=== PATIENT | female | born 1960 | race American Indian/Alaskan Native ===

== ENCOUNTER 2020-05-02 08:55 | Outpatient (CLI) | payer MEDICARE ==
--- NOTE | 2020-05-03 07:40 | Mammography Report ---
DIGITAL SCREENING MAMMOGRAM WITH CAD, 05/02/2020 CLINICAL INFORMATION / INDICATION: Routine screening mammography. TECHNIQUE: Digital bilateral 2D mammography was obtained in the craniocaudal and mediolateral obliqu e projections. This examination was interpreted with the benefit of Computer-Aided Detection analysis . COMPARISON: 03/27/2010 FINDINGS: Breast Density: The breasts are heterogeneously dense, which may obscure small masses. No dominant mass, suspicious calcifications, or architectural distortion in either breast. Interval right Port-A-Cath placement is seen. Small nodes in the right axilla are not enlarged or sig nificantly thickened. IMPRESSION: No mammographic evidence of malignancy. Follow up recommendation: Routine yearly BI-RADS Category 2: Benign. A "normal" or negative report should not discourage follow up or biopsy of a clinically significant f inding. A written summary of these findings will be mailed to the patient. The patient will be entered into a mammography reporting system which will generate a reminder letter for the patient's next appointmen t at the appropriate interval. The [employer] recommends yearly mammograms starting at age 40 and continuing as l castro as a woman is in good health. Breast MRI is recommended for women with an approximate 20-25% or greater lifetime risk of breast cancer, including women with a strong family history of breast or ova sapna cancer or who have been treated for Hodgkin's disease. Signer Name: Tomás Augustine MD Signed: 05/03/2020 7:35 AM Workstation Name: [id number]
== END 2020-05-02 08:56 | disposition home or self-care (01) ==
LOC: SPVWC 08:55
PROVIDERS: ATTEND Internal Medicine Hematology & Oncology
DX: Z12.31 Encounter for screening mammogram for malignant neoplasm of breast (principal)
CPT/HCPCS: 77067

== ENCOUNTER 2022-01-03 15:12 | Emergency (ER) | payer MEDICARE ==
[2022-01-03] MEDS ORDERED: SODIUM CHLORIDE 0.9% 1000 ML 1,000 ML IV ONE (15:18)
[2022-01-03] MEDS ORDERED: charcoal activated SOLUTION 25 GM/120 ML PO ONE (15:19)
--- NOTE | 2022-01-03 15:46 | XRay Report ---
CHEST 1 VIEW 01/03/2022 3:27 PM INDICATION / CLINICAL INFORMATION: Altered Mental Status. COMPARISON: 05/14/2015 FINDINGS: SUPPORT DEVICES: None. HEART / MEDIASTINUM: No significant abnormality. LUNGS / PLEURA: No significant pulmonary or pleural abnormality. No pneumothorax. ADDITIONAL FINDINGS: No significant additional findings. IMPRESSION: 1. No acute findings. Signer Name: Iván Nuno Jr, MD Signed: 01/03/2022 3:41 PM Workstation Name: [id number]
[2022-01-03 17:06] LABS: Amphetamine Screen,Urine Negative; Benzodiazepines Screen,Urine Negative; Cannabinoid Screen,Urine Negative; Cocaine Screen,Urine Negative; Methadone Screen,Urine Negative; Opiate Screen,Urine Negative
[2022-01-03 17:15] LABS: Bacteria,Urine 1+ /HPF (Negative); Mucus,Urine FEW /HPF
[2022-01-03 17:26] LABS: Color,Urine Yellow (Yellow)
[2022-01-03 19:38] LABS: Basophils # (Auto) 0.1 K/mm3 (0.0-0.1); Basophils % (Auto) 1.4 % (0.0-1.8); Eosinophils # (Auto) 0.2 K/mm3 (0.0-0.4); Eosinophils % (Auto) 2.9 % (0.0-4.3); Hematocrit 37.5 % (30.3-42.9); Hemoglobin 12.6 gm/dl (10.1-14.3); Lymphocytes # (Auto) 2.2 K/mm3 (1.2-5.4); Lymphocytes % (Auto) 39.6 % (13.4-35.0); Mean Corpuscular HGB Conc 34 % (30-34); Mean Corpuscular Volume 90 fl (79-97); Monocytes # (Auto) 0.5 K/mm3 (0.0-0.8); Monocytes % (Auto) 8.7 % (0.0-7.3); Platelet Count 281 K/mm3 (140-440); Red Blood Count 4.19 M/mm3 (3.65-5.03); Red Cell Distribution Width 16.5 % (13.2-15.2)
[2022-01-03 19:45] LABS: INR 0.9 (0.87-1.13)
[2022-01-03 19:54] LABS: Alanine Aminotransferase 37 units/L (7-56); Albumin 4.6 g/dL (3.9-5); BUN/Creatinine Ratio 12; Blood Urea Nitrogen 15 mg/dL (7-17); Hemolysis Index 5
--- NOTE | 2022-01-03 20:15 | Emergency Department Report ---
History of Present Illness - General Chief Complaint: Overdose Stated Complaint: OVERDOSE/SUICIDE FROM [facility] Time Seen by Provider: 01/03/22 15:26 Source: EMS Mode of arrival: Stretcher Limitations: No Limitations - History of Present Illness Initial Comments: pt reportedly took 40-50 25mg seroquel pills and 10-15 7.5mg remeron pills in attempt to kill self. Complaint: intentional overdose -: Sudden, hour(s) (1) Intent: suicide attempt Context: Intentional Overdose: recent loss Associated Symptoms: depression Treatments Prior to Arrival: none - Related Data Home Medications Medication Instructions Recorded Confirmed Last Taken Aspirin [Aspirin BABY CHEW TAB] 81 mg PO QDAY 05/14/15 04/09/16 Unknown Elviteg/Renita/Emtric/Tenofo Ala 1 each PO DAILY 04/09/16 04/09/16 Unknown [Genvoya Tablet] Previous Rx's Medication Instructions Recorded Last Taken Type lisinopriL [Zestril TAB] 20 mg PO QDAY #30 tablet 04/09/16 Unknown Rx valACYclovir [Valtrex] 500 mg PO BID #20 tab 04/09/16 Unknown Rx Allergies Allergy/AdvReac Type Severity Reaction Status Date / Time Penicillins AdvReac Rash Verified 01/03/22 15:23 ED Review of Systems ROS: Stated complaint: OVERDOSE/SUICIDE FROM [facility] Other details as noted in HPI Constitutional: denies: chills, fever Eyes: denies: eye pain, eye discharge, vision change ENT: denies: ear pain, throat pain Respiratory: denies: cough, shortness of breath, wheezing Cardiovascular: denies: chest pain, palpitations Endocrine: no symptoms reported Gastrointestinal: denies: abdominal pain, nausea, diarrhea Genitourinary: denies: urgency, dysuria, discharge Musculoskeletal: denies: back pain, joint swelling, arthralgia Skin: denies: rash, lesions Neurological: denies: headache, weakness, paresthesias Psychiatric: denies: anxiety, depression Hematological/Lymphatic: denies: easy bleeding, easy bruising ED Past Medical Hx - Past Medical History Hx Hypertension: Yes Hx Renal Disease: Yes ("stage 3") Hx HIV: Yes Additional medical history: high cholesterol. atrial fib - Surgical History Additional Surgical History: ablation-heart - Social History Smoking Status: Current Every Day Smoker Substance Use Type: Alcohol - Medications Home Medications: Home Medications Medication Instructions Recorded Confirmed Last Taken Type Aspirin [Aspirin BABY CHEW TAB] 81 mg PO QDAY 05/14/15 04/09/16 Unknown History Elviteg/Renita/Emtric/Tenofo Ala 1 each PO DAILY 04/09/16 04/09/16 Unknown History [Genvoya Tablet] lisinopriL [Zestril TAB] 20 mg PO QDAY #30 tablet 04/09/16 Unknown Rx valACYclovir [Valtrex] 500 mg PO BID #20 tab 04/09/16 Unknown Rx ED Physical Exam - General Limitations: No Limitations General appearance: alert, in no apparent distress - Head Head exam: Present: atraumatic, normocephalic - Eye Eye exam: Present: normal appearance - ENT ENT exam: Present: mucous membranes moist - Neck Neck exam: Present: normal inspection - Respiratory Respiratory exam: Present: normal lung sounds bilaterally. Absent: respiratory distress - Cardiovascular Cardiovascular Exam: Present: regular rate, normal rhythm. Absent: systolic murmur, diastolic murmur, rubs, gallop - GI/Abdominal GI/Abdominal exam: Present: soft, normal bowel sounds - Extremities Exam Extremities exam: Present: normal inspection - Back Exam Back exam: Present: normal inspection - Neurological Exam Neurological exam: Present: alert, oriented X3 - Psychiatric Psychiatric exam: Present: normal affect, normal mood - Skin Skin exam: Present: warm, dry, intact, normal color. Absent: rash ED Course Vital Signs 01/03/22 01/03/22 01/03/22 15:22 15:31 15:45 Pulse Rate 93 H 89 76 Respiratory 20 21 Rate Blood Pressure 166/91 O2 Sat by Pulse 97 93 Oximetry ED Medical Decision Making - Lab Data Result diagrams: 01/03/22 15:55 01/03/22 15:55 - EKG Data -: EKG Interpreted by In EKG shows normal: sinus rhythm Rate: normal - EKG Data Interpretation: no acute changes - Radiology Data Radiology results: report reviewed, image reviewed - Medical Decision Making Nurse Contacted Poison Control spoke with Kim. Recommendations: Monitor for 6-8hrs. Monitor for [employer] depression, tachycardia, hypotension, anticholinergic symptoms. Obtain CBC, CMP with magnesium, acetominophen, etoh, and salycilate level. Repeat acetopminophen and salycilate levels in 4 hours. first sample was lost in the lab , 2nd lab at 7 pm jona crain of tylenol and asa, spoke with poison control , cleared for psych assessment [address] Critical care attestation.: If time is entered above; I have spent that time in minutes in the direct care of this critically ill patient, excluding procedure time. ED Disposition Clinical Impression: Overdose, Suicide attempt Disposition: 30 STILL A PATIENT Is pt being admited?: No Does the pt Need Aspirin: No Condition: Fair
--- NOTE | 2022-01-04 10:36 | Electrocardiograph Report ---
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
--- NOTE | 2022-01-04 12:18 | Consultation ---
History of Present Illness - Reason for Consult Consult date: 01/04/22 Reason for consult: OD - History of Present Psychiatric Illness The patient was seen today. He is irritable and uncooperative. She says she overdosed because she wanted to . The patient says "I just don't want to live." I ask her why did she feel that way, she says "I'm not talking about any of that again." The patient pulls the linen over her head and refuses to further cooperative. Will start medication and recommend acute psychiatric inpatient treatment to stabilize the patient. PAST PSYCHIATRIC HISTORY: Unable to assess PAST MEDICAL HISTORY: None reported Family Psychiatric History: None reported or documented SOCIAL HISTORY Unable to assess REVIEW OF SYSTEMS Unable to assess MENTAL STATUS EXAMINATION Unable to assess Diagnoses: Major Depressive Disorder Intentional Overdose Treatment Plan 1013 Zoloft 25mg po daily Medical: per primary Disposition: recommend acute psychiatric inpatient treatment Will follow. Thanks Case staffed with Dr. Mckeon Medications and Allergies Allergies Allergy/AdvReac Type Severity Reaction Status Date / Time Penicillins AdvReac Rash Verified 01/03/22 15:23 Home Medications Medication Instructions Recorded Confirmed Last Taken Type Aspirin [Aspirin BABY CHEW TAB] 81 mg PO QDAY 05/14/15 04/09/16 Unknown History Elviteg/Renita/Emtric/Tenofo Ala 1 each PO DAILY 04/09/16 04/09/16 Unknown History [Genvoya Tablet] lisinopriL [Zestril TAB] 20 mg PO QDAY #30 tablet 04/09/16 Unknown Rx valACYclovir [Valtrex] 500 mg PO BID #20 tab 04/09/16 Unknown Rx Mental Status Exam - Vital signs Last Vital Signs Temp Pulse 76 01/03/22 15:45 Resp 21 01/03/22 15:45 BP 166/91 01/03/22 15:45 Pulse Ox 93 01/03/22 15:45 Results Result Diagrams: 01/03/22 15:55 01/03/22 15:55 Abnormal lab results 01/03/22 01/03/22 01/03/22 Range/Units 15:55 15:55 15:55 RDW 16.5 H (13.2-15.2) % Lymph % (Auto) 39.6 H (13.4-35.0) % [place] % (Auto) 8.7 H (0.0-7.3) % Sodium 146 H (137-145) mmol/L Carbon Dioxide 31 H (22-30) mmol/L Creatinine 1.3 H (0.6-1.2) mg/dL AST 41 H (5-40) units/L Total Creatine Kinase 164 H (30-135) units/L Salicylates < 0.3 L (2.8-20.0) mg/dL Acetaminophen (10.0-30.0) ug/mL 01/03/22 Range/Units 15:55 RDW (13.2-15.2) % Lymph % (Auto) (13.4-35.0) % [place] % (Auto) (0.0-7.3) % Sodium (137-145) mmol/L Carbon Dioxide (22-30) mmol/L Creatinine (0.6-1.2) mg/dL AST (5-40) units/L Total Creatine Kinase (30-135) units/L Salicylates (2.8-20.0) mg/dL Acetaminophen 5.0 L (10.0-30.0) ug/mL All other labs normal.
[2022-01-04] MEDS ORDERED: SERTRALINE 25 MG TAB PO SCH (13:00)
[2022-01-04] MEDS ORDERED: ZIPRASIDONE MESYLATE 20 MG VIAL IM ONE (19:11)
[2022-01-05 04:33] VITALS: BP 165/98
--- NOTE | 2022-01-05 07:23 | Event Note ---
Date: 01/05/22 S: Patient refused meds. Otherwise no events reported overnight O: Vital Signs - 8 hr 01/05/22 03:46 Temperature 98.6 F Pulse Rate 82 Respiratory 16 Rate Blood Pressure 165/98 [Right] O2 Sat by Pulse 95 Oximetry A: Major depressive disorder, overdose P: 1013/awaiting inpatient psych
--- NOTE | 2022-01-05 08:41 | Progress Note ---
Subjective - Reason for Consult Consult date: 01/05/22 Reason for consult: suicidal attempt - Chief Complaint Chief complaint: The patient was seen today. She is irritable. She endorses feeling depressed. She denies suicidal thoughts, but makes statements that signify otherwise. She is asking for her things she left at [place] and states she didn't ask to be brought here. The patient says "I took pills trying to kill myself and I don't know why I was brought to the hospital." She says "people think life is beautiful but it's not for me." She denies hallucinations. REVIEW OF SYSTEMS Constitutional: Negative for weight loss ENT: Negative for stridor Respiratory: Negative for cough or hemoptysis All other systems reviewed and are negative MENTAL STATUS EXAMINATION General Appearance and Behavior: Age appropriate, wearing appropriate clothes, cooperative, irritable, good eye contact Cooperation: cooperative Psychomotor Behavior: Psychomotor normal Mood: Depressed Affect and affective range: congruent with stated affect Thought Process: Goal directed Thought Content: Reality oriented Speech: Normal volume, Regular rate and rhythm Suicidal Ideation: Yes Homicidal Ideation: Denies Hallucination: Denies Delusions: none elicited Impulse Control: Limited Insight and Judgment: Limited Memory: Intact Attention:attentive Orientation: Alert and oriented Diagnoses: Major Depressive Disorder Intentional Overdose Treatment Plan 1013 Increase Zoloft 50mg po daily Start Depakote DR 125mg po BID Start Doxepin 10mg po qhs Medical: per primary Disposition: recommend acute psychiatric inpatient treatment Will follow. Thanks Case staffed with Dr. Mckeon Mental Status Exam - Vital signs Last Vital Signs Temp 98.6 F 01/05/22 03:46 Pulse 82 01/05/22 03:46 Resp 16 01/05/22 03:46 BP 165/98 01/05/22 03:46 Pulse Ox 95 01/05/22 03:46
[2022-01-05] MEDS ORDERED: DIVALPROEX DR 125 MG TAB PO SCH (10:00)
[2022-01-05] MEDS ORDERED: SERTRALINE 50 MG TAB PO SCH (10:00)
[2022-01-05] MEDS ORDERED: DOXEPIN 10 MG CAP PO SCH (22:00)
== END 2022-01-05 19:40 ==
LOC: ED 15:12
DX: T43.592A Poisoning by other antipsychotics and neuroleptics, intentional self-harm, initial encounter (principal); I10 Essential (primary) hypertension; Z20.822 Contact with and (suspected) exposure to COVID-19; R79.1 Abnormal coagulation profile; E78.00 Pure hypercholesterolemia, unspecified; F17.200 Nicotine dependence, unspecified, uncomplicated; Z72.89 Other problems related to lifestyle; Z88.0 Allergy status to penicillin; Z79.899 Other long term (current) drug therapy; Z79.82 Long term (current) use of aspirin; Y92.89 Other specified places as the place of occurrence of the external cause
CPT/HCPCS: 36415; 71045; 80053; 80307; 81001; 82550; 84484; 85025; 85610; 93005; 96372; 99285; J3486; J7030; U0003; 80320; G0480